=== PATIENT | male | born 1995 | race Two or more races ===

== ENCOUNTER 2016-11-05 05:17 | Emergency (ER) | payer OTHER, MEDICAID ==
[2016-11-05] MEDS ORDERED: NS 1,000 ML IV ONE (05:25)
[2016-11-05 05:29] VITALS: RESP 16
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
[2016-11-05] MEDS ORDERED: IOPAMIDOL (ISOVUE-300) 100 ML BTL IV ONE (05:39)
[2016-11-05 05:46] LABS: % IMMATURE GRANULYOCYTES 0.4 % (0.0-1.1); ABSOLUTE IMMATURE GRANULOCYTES 0.03 10^3/uL (0.00-0.10); ADD DIFF? NO; ADD MORPH? NO; ADD SCAN? NO; ATYPICAL LYMPHOCYTE FLAG 90 (0-99); FRAGMENT RBC FLAG 0 (0-99); HEMATOCRIT 40.8 % (40.0-51.0); HEMOGLOBIN 14.5 g/dL (13.7-17.5); LEFT SHIFT FLG 0 (0-99); LIPEMIA HEMOLYSIS FLAG 90 (0-99); MEAN CELL HEMOGLOBIN 32.2 pg (27.9-34.1); MEAN CELL HEMOGLOBIN CONCENTR. 35.5 g/dL (32.4-36.7); MEAN CELL VOLUME 90.7 fL (81.5-99.8); MEAN PLATELET VOLUME 10.5 fL (8.7-11.7); PLATELET CLUMPS FLAG 0 (0-99); PLATELET COUNT 199 10^3/uL (150-400); RED CELL DISTRIBUTION WIDTH 11.7 % (11.5-15.2)
[2016-11-05 06:02] LABS: ANION GAP 12 mEq/L (8-16); CALCIUM 9.2 mg/dL (8.5-10.4); CARBON DIOXIDE 24 mEq/l (22-31); CHLORIDE 105 mEq/L (97-110); CREATININE 0.7 mg/dL (0.7-1.3); ETHANOL SERUM < 10 mg/dL (0-10); GLOMERULAR FILTRATION RATE > 60; GLUCOSE 103 mg/dL (70-100); POTASSIUM 4.3 mEq/L (3.5-5.2); SODIUM 141 mEq/L (134-144)
[2016-11-05] MEDS ORDERED: IBUPROFEN 600 MG TAB PO ONE ×2 (06:58→07:03)
[2016-11-05 07:03] VITALS: BP 140/81; PULSE 86; TEMP 97.5; O2SAT 98
[2016-11-05 07:14] LABS: COLOR PALE YELLOW; LEUKOCYTE ESTERASE,URINE NEGATIVE (NEGATIVE); NITRITE,URINE NEGATIVE (NEGATIVE)
== END 2016-11-05 07:04 | disposition home or self-care (01) ==
LOC: EDUNIT#
DX: T14.8 Other injury of unspecified body region (principal); F17.200 Nicotine dependence, unspecified, uncomplicated; V44.5XXA Car driver injured in collision with heavy transport vehicle or bus in traffic accident, initial encounter; Y92.410 Unspecified street and highway as the place of occurrence of the external cause; Y99.8 Other external cause status; Y93.89 Activity, other specified
CPT/HCPCS: 80305; 82947-QW; G0397; G0480; Q9967

== ENCOUNTER 2017-11-25 08:57 | Emergency (ER) | payer MEDICAID, OTHER ==
[2017-11-25 09:03] VITALS: TEMP 97.7
[2017-11-25] MEDS ORDERED: NS 1,000 ML IV ONE (09:08)
[2017-11-25] MEDS ORDERED: ONDANSETRON 4 MG/2 ML VIAL IVP ONE (09:08)
[2017-11-25] MEDS ORDERED: LORazepam 2 MG/ML INJ IVP ONE ×2 (09:13→09:51)
[2017-11-25] MEDS ORDERED: KETOROLAC 15 MG/1 ML SDV IVP ONE (09:13)
--- NOTE | 2017-11-25 09:17 | EDPHY ---
H & P Time Seen by Provider: 11/25/17 09:05 HPI/ROS: CHIEF COMPLAINT: Vomiting, abdominal pain HISTORY OF PRESENT ILLNESS: 22-year-old male presents with vomiting and abdominal pain. Onset of generalized abdominal pain this morning, associated with multiple episodes of vomiting and diarrhea. The abdominal pain waxes and wanes and is moderate. He also has tingling in all of his extremities and feels quite anxious. History of daily marijuana use. No prior similar symptoms. No known bad food ingestion or ill contacts. REVIEW OF SYSTEMS: Constitutional: No fever, no chills Eyes: No visual changes ENT: No sore throat Respiratory: No cough, no shortness of breath Cardiac: No chest pain Genitourinary: no dysuria Musculoskeletal: No myalgias Skin: No rash Neurological: No headache, no weakness Psychiatric: Feels anxious Past Medical/Surgical History: Denies Social History: No alcohol Daily marijuana use Smoking Status: Current every day smoker Physical Exam: General Appearance: Alert, pleasant, appears uncomfortable Eyes: Pupils equal and round, no conjunctival pallor or injection ENT, Mouth: Mucous membranes moist Neck: Normal inspection Respiratory: Lungs are clear to auscultation Cardiovascular: Regular rate and rhythm Gastrointestinal: Abdomen is soft, diffuse mild tenderness, no peritoneal signs Neurological: A&O, nonfocal, normal gait Skin: Warm and dry Extremities: Normal inspection Psychiatric: Anxious Constitutional: Initial Vital Signs Temperature (C) 36.5 C 11/25/17 08:58 Heart Rate 103 H 11/25/17 08:58 Respiratory Rate 20 11/25/17 08:58 Blood Pressure 139/76 H 11/25/17 08:58 O2 Sat (%) 97 11/25/17 08:58 O2 Delivery Mode Room Air Allergies/Adverse Reactions: No Known Allergies Allergy (Verified 11/25/17 08:58) Home Medications: Medication Instructions Recorded Ondansetron Odt [Zofran Odt 4 mg 4 mg PO Q4 PRN #6 tab 11/25/17 (*)] Medical Decision Making ED Course/Re-evaluation: This patient presents with vomiting and diarrhea, most likely secondary to gastroenteritis, query cyclic vomiting syndrome. Abdominal exam is benign and I do not suspect appendicitis or other surgical problem. IV normal saline 1 L, Zofran 4 mg IV, Toradol 15 mg IV and Ativan 0.5 mg IV given. Will reassess after medications. 9:45 a.m.-feels better overall, nausea and pain have resolved. Abdomen is soft and nontender. Continues to feel anxious. Ativan 0.5 mg IV given. 11 30 a.m.-recurrent nausea. Reglan 10 mg IV and Benadryl 25 mg IV given. Feels better after these medications. The patient left the emergency department without letting the ED staff know prior to final re-evaluation. Differential Diagnosis: Differential diagnosis includes though it is not limited to appendicitis, cholecystitis, diverticulitis, pyelonephritis, bowel perforation, small bowel obstruction. - Data Points Laboratory Results: Laboratory Results 11/25/17 09:12 11/25/17 09:12 Medications Given: Discontinued Medications Diphenhydramine HCl (Benadryl Injection) 25 mg IVP EDNOW ONE Stop: 11/25/17 11:44 Last Admin: 11/25/17 12:03 Dose: 25 mg Sodium Chloride (Ns) 1,000 mls @ 0 mls/hr IV EDNOW ONE; Wide Open PRN Reason: Protocol Stop: 11/25/17 09:09 Last Admin: 11/25/17 09:19 Dose: 1,000 mls Ketorolac Tromethamine (Toradol) 15 mg IVP EDNOW ONE Stop: 11/25/17 09:14 Last Admin: 11/25/17 09:18 Dose: 15 mg Lorazepam (Ativan Injection) 0.5 mg IVP EDNOW ONE Stop: 11/25/17 09:14 Last Admin: 11/25/17 09:18 Dose: 0.5 mg Lorazepam (Ativan Injection) 0.5 mg IVP EDNOW ONE Stop: 11/25/17 09:52 Last Admin: 11/25/17 10:26 Dose: 0.5 mg Metoclopramide HCl (Reglan Injection) 10 mg IVP EDNOW ONE Stop: 11/25/17 11:44 Last Admin: 11/25/17 12:03 Dose: 10 mg Ondansetron HCl (Zofran) 4 mg IVP EDNOW ONE Stop: 11/25/17 09:09 Last Admin: 11/25/17 09:18 Dose: 4 mg Departure - Departure Disposition: Home, Routine, Self-Care Clinical Impression: Vomiting and diarrhea Abdominal pain Qualifiers: Abdominal location: generalized Qualified Code(s): R10.84 - Generalized abdominal pain Condition: Good Instructions: Acute Nausea and Vomiting (ED), Acute Abdominal Pain (ED) Additional Instructions: 1. Clear liquids for 24 hours. 2. Advance diet as tolerated. I suggest the BRAT diet to start: bananas, rice, applesauce and toast. 3. Return for worsening symptoms, persistent vomiting, increasing abdominal pain , any concerns. 4. Follow up with your primary care physician in 1-2 days if you continue to have vomiting or abdominal pain. Referrals: [facility],. [Clinic] - 1 day, if not improved Prescriptions: Ondansetron Odt [Zofran Odt 4 mg (*)] 4 mg PO Q4 PRN #6 tab PRN Reason: Nausea
[2017-11-25 09:19] LABS: PLATELET COUNT 287 10^3/uL (150-400)
[2017-11-25] MEDS ORDERED: METOCLOPRAMIDE 10 MG/2 ML VIAL IVP ONE (11:43)
[2017-11-25 12:06] VITALS: BP 158/88; PULSE 86; RESP 16; O2SAT 100
== END 2017-11-25 12:30 | disposition home or self-care (01) ==
DX: R10.84 Generalized abdominal pain (principal); R11.10 Vomiting, unspecified; R19.7 Diarrhea, unspecified; E86.9 Volume depletion, unspecified; F17.200 Nicotine dependence, unspecified, uncomplicated
CPT/HCPCS: 96374; J1200; J1885; J2060; J2405; J2765

== ENCOUNTER 2018-03-05 12:05 | Emergency (ER) | payer MEDICAID, OTHER ==
[2018-03-05] MEDS ORDERED: NS 1,000 ML IV ONE (12:23)
[2018-03-05] MEDS ORDERED: ONDANSETRON 4 MG/2 ML VIAL IVP ONE (12:27)
[2018-03-05 12:58] LABS: PLATELET COUNT 329 10^3/uL (150-400)
[2018-03-05] MEDS ORDERED: PANTOPRAZOLE SODIUM 40 MG VIAL IVP ONE (13:01)
[2018-03-05] MEDS ORDERED: LORazepam 2 MG/ML INJ IVP ONE (13:01)
--- NOTE | 2018-03-05 13:05 | EDPHY ---
H & P Smoking Status: Current every day smoker Time Seen by Provider: 03/05/18 12:18 HPI/ROS: CHIEF COMPLAINT: Nausea, vomiting HISTORY OF PRESENT ILLNESS: 22-year-old male presents to the emergency department with multiple episodes of nausea vomiting since this morning. The patient has had similar episodes in the past. He says that he feels very weak. He typically smokes marijuana daily. He describes some mild diffuse abdominal pain. He feels nauseous and has vomited multiple times. No diarrhea. No fevers or chills. No chest pain or difficulty breathing. No neck or back pain. No reported trauma. He does not drink alcohol. REVIEW OF SYSTEMS: Constitutional: No fever, no chills. Eyes: No double or blurry vision. ENT: No sore throat. Respiratory: No cough, no shortness of breath. Cardiac: No chest pain. Gastrointestinal: Vomiting as above. Abdominal pain. No diarrhea. Genitourinary: No dysuria. Musculoskeletal: No neck or back pain. Skin: No rashes. Neurological: No headache. (Ara Finnegan) Past Medical/Surgical History: Daily marijuana use (Ara Finnegan) Social History: Single (Ara Finnegan) Physical Exam: General Appearance: Alert, mild to moderate distress. Anxious Eyes: Pupils equal and round. Extraocular motions are all intact. ENT: Mouth: Mucous membranes moist. Respiratory: No wheezing, rhonchi, or rales, lungs are clear to auscultation. Cardiovascular: Regular rate and rhythm. Gastrointestinal: Abdomen is soft he has mild diffuse tenderness with palpation. There is no masses, rebound or guarding noted. No CVA tenderness bilaterally. Neurological: Alert and oriented x 3, cranial nerves II through XII grossly intact Skin: Warm and dry, no rashes. Musculoskeletal: Nontender to palpate along the cervical, thoracic or lumbar spine. Neck is supple. Extremities: Full range of motion and no peripheral edema. Psychiatric: Patient is oriented X 3, there is no agitation. (Ara Finnegan) Constitutional: Initial Vital Signs Temperature (C) 36.4 C 03/05/18 12:06 Heart Rate 78 03/05/18 12:06 Blood Pressure 151/88 H 03/05/18 12:06 O2 Sat (%) 100 03/05/18 12:06 O2 Delivery Mode Room Air Allergies/Adverse Reactions: No Known Allergies Allergy (Verified 03/05/18 12:09) Home Medications: Medication Instructions Recorded NK [No Known Home Meds] 03/05/18 Medical Decision Making ED Course/Re-evaluation: The patient was evaluated and managed by the physician's home health assistant. My cosignature indicates that I reviewed the chart and I agree with the findings and plan of care as documented. I am the secondary supervising physician. ( Lena Lopez) 22-year-old male presents to the emergency department with nausea, vomiting and feeling weak. Laboratory studies were within normal limits. His CO2 was low at 17. He received IV normal saline, IV Ativan, IV Zofran, he is feeling much better. He is tolerating p.o. Fluids and is comfortable being discharged home. Patient's abdominal exam is benign. I do not think imaging studies are indicated. He was given gastroenterology referral. (Ara Finnegan) Differential Diagnosis: Including but not limited to dehydration, bowel obstruction, cyclical vomiting syndrome, GERD, peptic ulcer disease, acute appendicitis (Ara Finnegan) - Data Points Laboratory Results: Laboratory Results 03/05/18 12:41 03/05/18 12:41 03/05/18 03/05/18 12:41 12:41 WBC 13.75 10^3/uL H 10^3/uL (3.80-9.50) RBC 4.61 10^6/uL 10^6/uL (4.40-6.38) Hgb 14.8 g/dL g/dL (13.7-17.5) Hct 41.8 % % (40.0-51.0) MCV 90.7 fL fL (81.5-99.8) MCH 32.1 pg pg (27.9-34.1) MCHC 35.4 g/dL g/dL (32.4-36.7) RDW 12.3 % % (11.5-15.2) Plt Count 329 10^3/uL 10^3/uL (150-400) MPV 10.4 fL fL (8.7-11.7) Neut % (Auto) 82.5 % H % (39.3-74.2) Lymph % (Auto) 9.5 % L % (15.0-45.0) [place] % (Auto) 6.9 % % (4.5-13.0) Eos % (Auto) 0.1 % L % (0.6-7.6) Baso % (Auto) 0.4 % % (0.3-1.7) Nucleat RBC Rel Count 0.0 % % (0.0-0.2) Absolute Neuts (auto) 11.35 10^3/uL H 10^3/uL (1.70-6.50) Absolute Lymphs (auto) 1.30 10^3/uL 10^3/uL (1.00-3.00) Absolute Monos (auto) 0.95 10^3/uL H 10^3/uL (0.30-0.80) Absolute Eos (auto) 0.02 10^3/uL L 10^3/uL (0.03-0.40) Absolute Basos (auto) 0.05 10^3/uL 10^3/uL (0.02-0.10) Absolute Nucleated RBC 0.00 10^3/uL 10^3/uL (0-0.01) Immature Gran % 0.6 % % (0.0-1.1) Immature Gran # 0.08 10^3/uL 10^3/uL (0.00-0.10) Sodium 140 mEq/L mEq/L (135-145) Potassium 3.8 mEq/L mEq/L (3.3-5.0) Chloride 104 mEq/L mEq/L (97-110) Carbon Dioxide 19 mEq/l L mEq/l (22-31) Anion Gap 17 mEq/L H mEq/L (8-16) BUN 15 mg/dL mg/dL (7-23) Creatinine 0.6 mg/dL L mg/dL (0.7-1.3) Estimated GFR > 60 Glucose 145 mg/dL H mg/dL (70-100) Calcium 10.0 mg/dL mg/dL (8.5-10.4) Medications Given: Discontinued Medications Sodium Chloride (Ns) 1,000 mls @ 0 mls/hr IV ONCE ONE PRN Reason: Wide Open Stop: 03/05/18 12:24 Last Admin: 03/05/18 12:40 Dose: 1,000 mls Lorazepam (Ativan Injection) 1 mg IVP EDNOW ONE Stop: 03/05/18 13:02 Last Admin: 03/05/18 13:14 Dose: 1 mg Ondansetron HCl (Zofran) 4 mg IVP EDNOW ONE Stop: 03/05/18 12:28 Last Admin: 03/05/18 12:40 Dose: 4 mg Pantoprazole Sodium (Protonix) 40 mg IVP EDNOW ONE Stop: 03/05/18 13:02 Last Admin: 03/05/18 13:19 Dose: 40 mg Departure - Departure Disposition: Home, Routine, Self-Care Clinical Impression: Vomiting Qualifiers: Vomiting type: cyclical vomiting Vomiting Intractability: non-intractable Nausea presence: with nausea Qualified Code(s): G43.A0 - Cyclical vomiting, not intractable Condition: Good Instructions: Acute Nausea and Vomiting (ED) Additional Instructions: You should have close follow-up with golf cart maker as discussed. Return to the emergency department if you have recurring episodes of vomiting or if you have any other concerns. Referrals: Jay Jay Bojorquez MD [Medical Doctor] - 5-7 days, call for appt. (Maintenance Construction Helper on-call)
[2018-03-05 15:21] VITALS: BP 152/59
== END 2018-03-05 15:31 | disposition home or self-care (01) ==
DX: G43.A0 Cyclical vomiting, in migraine, not intractable (principal); F17.200 Nicotine dependence, unspecified, uncomplicated
CPT/HCPCS: 96374; J2060; J2405

== ENCOUNTER 2019-01-10 21:00 | Emergency (ER) | payer MEDICAID, OTHER ==
--- NOTE | 2019-01-10 21:02 | EDPHY ---
H & P Time Seen by Provider: 01/10/19 21:02 HPI/ROS: HPI: This is a 23-year-old male who presents with Chief Complaint: Right lower quadrant abdominal pain, nausea, vomiting Location: Right lower quadrant Quality: Sharp pain Duration: Since this morning Signs and Symptoms: no fever, + nausea, + vomiting, no hematemesis, no blood in stool, no abdominal bloating, no diarrhea, no back pain, no urinary symptoms, no testicular/groin pain, no indigestion, no chest pain, no shortness of breath Timing: Acute, constant, intermittent episodes Severity: Moderate Context: Patient presents with sudden onset this morning of nausea and greater than 10 episodes of vomiting accompanied by epigastric and right lower quadrant pain. Patient admits to alcohol and marijuana use. He reports he only drank a beer yesterday. Denies any fever, diarrhea, recent antibiotic use, back pain, urinary symptoms. Modifying Factors: None Comment: ROS: A comprehensive 10 system review of systems is otherwise negative aside from elements mentioned in the history of present illness. MEDICAL/SURGICAL/SOCIAL HISTORY: Medical history: Generally healthy. Does not take any regular medications. Surgical history: Denies Social history: Employed. Alcohol and marijuana use. Denies tobacco use. Family history noncontributory. CONSTITUTIONAL: Extremely well-appearing adult male, awake and alert, no obvious distress HEENT: Atraumatic and normocephalic, PERRL, EOMI. Nares patent; no rhinorrhea; no nasal mucosal edema. Tympanic membranes clear. Oropharynx clear, no exudate and moist pink mucosa. Airway patent. No lymphadenopathy. No meningismus. Cardiovascular: Normal S1/S2, tachycardia, regular rhythm, without murmur rub or gallop. PULMONARY/CHEST: Symmetrical and nontender. Clear to auscultation bilaterally. Good air movement. No accessory muscle usage. ABDOMEN: Soft, nondistended, moderate right lower quadrant tenderness, mild epigastric tenderness, no rebound, no guarding, no peritoneal signs, no masses or organomegaly. No CVAT. EXTREMITIES: 2/2 pulses, strength 5/5, no deformities, no clubbing, no cyanosis or edema. NEUROLOGICAL: no focal neuro deficits. GCS 15. SKIN: Warm and dry, no erythema. no rash. Good capillary refill. Source: Patient Exam Limitations: No limitations - Personal History Tetanus Vaccine Date: < 10 YEARS - Medical/Surgical History Hx Asthma: No Hx Chronic Respiratory Disease: No Hx Diabetes: No Hx Cardiac Disease: No Hx Renal Disease: No Hx Cirrhosis: No Hx Alcoholism: No Hx HIV/AIDS: No Hx Splenectomy or Spleen Trauma: No Other PMH: none - Social History Smoking Status: Never smoked Constitutional: Initial Vital Signs Temperature (C) 37.1 C 01/10/19 21:00 Heart Rate 107 H 01/10/19 21:00 Respiratory Rate 16 01/10/19 21:00 Blood Pressure 150/98 H 01/10/19 21:00 O2 Sat (%) 99 01/10/19 21:00 O2 Delivery Mode Room Air Allergies/Adverse Reactions: No Known Allergies Allergy (Verified 01/10/19 21:03) Home Medications: Medication Instructions Recorded Ondansetron Odt [Zofran Odt 4 mg 4 mg PO Q4 PRN #12 tab 01/10/19 (*)] Medical Decision Making - Diagnostics Imaging Results: Imaging Impressions Abdomen CT 01/10/19 21:27 Impression: Findings are within normal limits. There is no evidence of appendicitis. Findings were discussed with Guera Riddle PA-C at 11:09 PM, on 01/10/2019, who indicated that at the time of her exam the patient's pain was more epigastric in location. ED Course/Re-evaluation: Vital signs reviewed and show mild tachycardia and elevated blood pressure. Afebrile. IV access, laboratory studies, urinalysis and CT abdomen and pelvis scan with contrast ordered to evaluate for appendicitis Given 2 L normal saline, IV promethazine 12.5 mg, IV Zofran 4 mg 2238: Laboratory studies reviewed. WBC 14 K with left shift, sodium 137, potassium 3.6, creatinine 0.8. no signs of elevated LFTs, pancreatitis. Calcium 11.1, asymptomatic, suspect due to volume depletion 2308: Urinalysis shows trace ketones and increased specific gravity 2310: Repeat vital signs shows resolution of tachycardia with IV fluid hydration 2315: Called by radiologist, Dr. Alves, who reports that CT abdomen and pelvis scan shows no signs of appendicitis, no gallbladder disease, no pancreatitis, no gastroenteritis, no obstruction. It appears that patient has a gastritis versus gastroenteritis picture. Passed p.o. Trial without difficulty. Advised supportive care and prescription for Zofran given 2334: Notified by tech that patient now complaining of epigastric pain. IV Haldol 2.5 mg and IV Benadryl 25 mg given 0: Notified by RN that patient now feels better and asking to be discharged home. Tolerated p.o. Trial without any difficulty. Discharge with Phenergan prepack and prescription for Zofran. This patient was seen under the supervision of my secondary supervising physician. I evaluated and cared for this patient with attending. Differential Diagnosis: Abdominal pain including but not limited to appendicitis, cholecystitis, gastritis and urinary tract infection. - Data Points Laboratory Results: Laboratory Results 01/10/19 22:25 01/10/19 22:00 01/10/19 01/10/19 01/10/19 22:50 22:25 22:00 WBC 14.44 10^3/uL H 10^3/uL (3.80-9.50) RBC 4.88 10^6/uL 10^6/uL (4.40-6.38) Hgb 15.6 g/dL g/dL (13.7-17.5) Hct 43.3 % % (40.0-51.0) MCV 88.7 fL fL (81.5-99.8) MCH 32.0 pg pg (27.9-34.1) MCHC 36.0 g/dL g/dL (32.4-36.7) RDW 12.1 % % (11.5-15.2) Plt Count 269 10^3/uL 10^3/uL (150-400) MPV 10.5 fL fL (8.7-11.7) Neut % (Auto) 87.9 % H % (39.3-74.2) Lymph % (Auto) 6.4 % L % (15.0-45.0) [place] % (Auto) 5.2 % % (4.5-13.0) Eos % (Auto) 0.0 % L % (0.6-7.6) Baso % (Auto) 0.2 % L % (0.3-1.7) Nucleat RBC Rel Count 0.0 % % (0.0-0.2) Absolute Neuts (auto) 12.69 10^3/uL H 10^3/uL (1.70-6.50) Absolute Lymphs (auto) 0.92 10^3/uL L 10^3/uL (1.00-3.00) Absolute Monos (auto) 0.75 10^3/uL 10^3/uL (0.30-0.80) Absolute Eos (auto) 0.00 10^3/uL L 10^3/uL (0.03-0.40) Absolute Basos (auto) 0.03 10^3/uL 10^3/uL (0.02-0.10) Absolute Nucleated RBC 0.00 10^3/uL 10^3/uL (0-0.01) Immature Gran % 0.3 % % (0.0-1.1) Immature Gran # 0.05 10^3/uL 10^3/uL (0.00-0.10) Sodium 137 mEq/L mEq/L (135-145) Potassium 3.6 mEq/L mEq/L (3.5-5.2) Chloride 100 mEq/L mEq/L (97-110) Carbon Dioxide 22 mEq/l mEq/l (22-31) Anion Gap 15 mEq/L H mEq/L (6-14) BUN 18 mg/dL mg/dL (7-23) Creatinine 0.8 mg/dL mg/dL (0.7-1.3) Estimated GFR > 60 Glucose 142 mg/dL H mg/dL (70-100) Calcium 11.1 mg/dL H mg/dL (8.5-10.4) Phosphorus 1.9 mg/dL L mg/dL (2.5-4.5) Total Bilirubin 0.8 mg/dL mg/dL (0.1-1.4) Conjugated Bilirubin 0.2 mg/dL mg/dL (0.0-0.5) Unconjugated Bilirubin 0.6 mg/dL mg/dL (0.0-1.1) AST 25 IU/L IU/L (17-59) ALT 19 IU/L L IU/L (21-72) Alkaline Phosphatase 118 IU/L IU/L (38-126) Total Protein 8.8 g/dL H g/dL (6.3-8.2) Albumin 5.4 g/dL H g/dL (3.5-5.0) Lipase 30 IU/L IU/L (23-300) Urine Color YELLOW Urine Appearance CLEAR Urine pH 8.0 H (5.0-7.5) Ur Specific [place] > 1.035 H (1.002-1.030) Urine Protein NEGATIVE (NEGATIVE) Urine Ketones TRACE H (NEGATIVE) Urine Blood NEGATIVE (NEGATIVE) Urine Nitrate NEGATIVE (NEGATIVE) Urine Bilirubin NEGATIVE (NEGATIVE) Urine Urobilinogen NEGATIVE EU EU (0.2-1.0) Ur Leukocyte Esterase NEGATIVE (NEGATIVE) Urine Glucose NEGATIVE (NEGATIVE) 01/10/19 22:00 WBC REJ RBC REJ Hgb REJ Hct REJ MCV REJ MCH REJ MCHC REJ RDW REJ Plt Count REJ MPV REJ Neut % (Auto) REJ Lymph % (Auto) REJ [place] % (Auto) REJ Eos % (Auto) REJ Baso % (Auto) REJ Nucleat RBC Rel Count REJ Absolute Neuts (auto) REJ Absolute Lymphs (auto) REJ Absolute Monos (auto) REJ Absolute Eos (auto) REJ Absolute Basos (auto) REJ Absolute Nucleated RBC REJ Immature Gran % REJ Immature Gran # REJ Sodium Potassium Chloride Carbon Dioxide Anion Gap BUN Creatinine Estimated GFR Glucose Calcium Phosphorus Total Bilirubin Conjugated Bilirubin Unconjugated Bilirubin AST ALT Alkaline Phosphatase Total Protein Albumin Lipase Urine Color Urine Appearance Urine pH Ur Specific [place] Urine Protein Urine Ketones Urine Blood Urine Nitrate Urine Bilirubin Urine Urobilinogen Ur Leukocyte Esterase Urine Glucose Medications Given: Discontinued Medications Diphenhydramine HCl (Benadryl Injection) 25 mg IVP EDNOW ONE Stop: 01/10/19 23:34 Last Admin: 01/10/19 23:35 Dose: 25 mg Haloperidol Lactate (Haldol Injection) 2.5 mg IVP EDNOW ONE Stop: 01/10/19 23:32 Last Admin: 01/10/19 23:35 Dose: 2.5 mg Sodium Chloride (Ns) 1,000 mls @ 0 mls/hr IV EDNOW ONE; Wide Open PRN Reason: Protocol Stop: 01/10/19 21:27 Last Admin: 01/10/19 21:55 Dose: 1,000 mls Ondansetron HCl (Zofran) 4 mg IVP EDNOW ONE Stop: 01/10/19 21:27 Last Admin: 01/10/19 21:59 Dose: 4 mg Promethazine HCl (Phenergan) 12.5 mg IVP EDNOW ONE Stop: 01/10/19 21:27 Last Admin: 01/10/19 21:59 Dose: 12.5 mg Departure - Departure Disposition: Home, Routine, Self-Care Clinical Impression: Nausea and vomiting in adult Condition: Good Instructions: Acute Nausea and Vomiting (ED) Additional Instructions: Consume a minimum of 8-10 glasses of water or electrolyte fluid replacement drinks that include Gatorade, Powerade, Pedialyte. Eat a bland diet for the next 48 hours and then slowly advance as tolerated. Take Zofran 1 tab every 4 hours as needed for nausea, vomiting. Establish care at the [facility]. Referrals: [facility],. [Clinic] - As per Instructions Prescriptions: Ondansetron Odt [Zofran Odt 4 mg (*)] 4 mg PO Q4 PRN #12 tab PRN Reason: Nausea/Vomiting, Use 1st
[2019-01-10] MEDS ORDERED: PROMETHAZINE HCL 25 MG/ML INJ IVP ONE (21:26)
[2019-01-10] MEDS ORDERED: ONDANSETRON 4 MG/2 ML VIAL IVP ONE (21:26)
[2019-01-10] MEDS ORDERED: NS 1,000 ML IV ONE (21:26)
[2019-01-10] MEDS ORDERED: IOPAMIDOL (ISOVUE-300) 100 ML BTL ONE (21:29)
[2019-01-10 22:32] LABS: PLATELET COUNT 269 10^3/uL (150-400)
[2019-01-10] MEDS ORDERED: PROMETHAZINE 25 MG PREPACK #4 BTL TAKEHOME ONE (23:19)
[2019-01-10] MEDS ORDERED: HALOPERIDOL LACT 5 MG/ML INJ IVP ONE (23:31)
[2019-01-10] MEDS ORDERED: HALOPERIDOL LACT 5 MG/ML INJ ONE (23:32)
[2019-01-11 00:07] VITALS: BP 125/79
== END 2019-01-11 00:07 | disposition home or self-care (01) ==
DX: R11.2 Nausea with vomiting, unspecified (principal); R10.31 Right lower quadrant pain; R10.13 Epigastric pain; E86.9 Volume depletion, unspecified
CPT/HCPCS: 96374; J1200; J1630; J2405; J2550; Q9967

== ENCOUNTER 2019-01-12 12:18 | Emergency (ER) | payer MEDICAID ==
[2019-01-12] MEDS ORDERED: NS 1,000 ML IV ONE (13:20)
[2019-01-12] MEDS ORDERED: METOCLOPRAMIDE 10 MG/2 ML VIAL IVP ONE (13:20)
--- NOTE | 2019-01-12 13:22 | EDPHY ---
H & P Stated Complaint: anxiety and abdominal pain Time Seen by Provider: 01/12/19 13:12 HPI/ROS: CHIEF COMPLAINT: Vomiting HISTORY OF PRESENT ILLNESS: The patient is a 23-year-old man who comes to the emergency department complaining of nausea vomiting since 9:00 a.m. this morning. He was seen here 2 days ago with nausea and abdominal pain. He had lab work done and a CT scan that was negative. He was discharged with a prescription for Zofran. He did not fill that prescription until today. He was feeling well yesterday and states that he worked a 12 hr day. This morning when he woke up he felt slightly nauseous again. He went to the pharmacist and got his prescription filled but when he took it he threw it back up. He states that he has thrown up 9 times since then with occasional streaks of blood. He denies abdominal pain today. No diarrhea. No chest pain or shortness of breath. No fever. He does smoke marijuana daily and tells me that he has been told to stop. Severity: Moderate Modifying factors: None REVIEW OF SYSTEMS: Constitutional: denies: chills, fever, recent illness, recent injury EENTM: denies: blurred vision, double vision, nose congestion Respiratory: denies: cough, shortness of breath Cardiac: denies: chest pain, irregular heart rate, lightheadedness, palpitations Gastrointestinal/Abdominal: See HPI Genitourinary: denies: dysuria, frequency, hematuria, pain Musculoskeletal: denies: joint pain, muscle pain Skin: denies: lesions, rash, jaundice, bruising Neurological: denies: headache, numbness, paresthesia, tingling, dizziness, weakness Hematologic/Lymphatic: denies: blood clots, easy bleeding, easy bruising Immunologic/allergic: denies: HIV/AIDS, transplant 10 systems reviewed and negative except as noted EXAM: GENERAL: Well-appearing, well-nourished and in no acute distress. HEAD: Atraumatic, normocephalic. EYES: Pupils equal round and reactive to light, extraocular movements intact, sclera anicteric, conjunctiva are normal. ENT: TMs normal, nares patent, oropharynx clear without exudates. Moist mucous membranes. NECK: Normal range of motion, supple without lymphadenopathy or JVD. LUNGS: Breath sounds clear to auscultation bilaterally and equal. No wheezes rales or rhonchi. HEART: Regular rate and rhythm without murmurs, rubs or gallops. ABDOMEN: Soft, nontender, normoactive bowel sounds. No guarding, no rebound. No masses appreciated. BACK: No CVA tenderness, no spinal tenderness, step-offs or deformities EXTREMITIES: Normal range of motion, no pitting or edema. No clubbing or cyanosis. NEUROLOGICAL: Cranial nerves II through XII grossly intact. Normal speech, normal gait. 5/5 strength, normal movement in all extremities, normal sensation , normal reflexes PSYCH: Normal mood, normal affect. SKIN: Warm, dry, normal turgor, no visible rashes or lesions. Source: Patient Exam Limitations: No limitations - Personal History Current Tetanus/Diphtheria Vaccine: Yes Current Tetanus Diphtheria and Acellular Pertussis (TDAP): Yes Tetanus Vaccine Date: < 10 YEARS - Medical/Surgical History Hx Asthma: No Hx Chronic Respiratory Disease: No Hx Diabetes: No Hx Cardiac Disease: No Hx Renal Disease: No Hx Cirrhosis: No Hx Alcoholism: No Hx HIV/AIDS: No Hx Splenectomy or Spleen Trauma: No Other PMH: none - Family History Significant Family History: No pertinent family hx - Social History Smoking Status: Never smoked Alcohol Use: None Constitutional: Initial Vital Signs Temperature (C) 36.6 C 01/12/19 12:31 Heart Rate 76 01/12/19 12:31 Respiratory Rate 18 01/12/19 12:31 Blood Pressure 135/71 H 01/12/19 12:31 O2 Sat (%) 100 01/12/19 12:31 O2 Delivery Mode Room Air Allergies/Adverse Reactions: No Known Allergies Allergy (Verified 01/10/19 21:03) Home Medications: Medication Instructions Recorded Ondansetron Odt [Zofran Odt 4 mg 4 mg PO Q4 PRN #12 tab 01/10/19 (*)] Medical Decision Making ED Course/Re-evaluation: Patient is well appearing. He denies abdominal pain and has a nontender exam. Will treat with antiemetics and hydration and recheck his lab work. On his previous visit he did not have complete resolution was Zofran and was eventually treated with Haldol and Benadryl which he states seemed to work better. Is also asking for anxiety medicine. 2:30 p.m. Patient is doing well. Nausea is resolved. Abdominal exam remains benign. Lab work is improved compared to 2 days ago. Will p.o. Challenge. He has already filled his Zofran prescription. 3:00 p.m. patient is doing well. She is tolerating p. O.. He is eager to go home. Differential Diagnosis: Partial list of the Differential diagnosis considered include but were not limited to; gastroenteritis, food poisoning, anxiety, cannabis hyperemesis and although unlikely based on the history and physical exam, I also considered biliary disease, pancreatic disease, appendicitis, volvulus, ischemia, kidney stone. I discussed these differential diagnoses and the plan with the patient as well as the usual and expected course. The patient understands that the diagnosis is provisional and that in medicine we are not always correct and that further workup is often warranted. Usual and customary warnings were given. All of the patient's questions were answered. The patient was instructed to return to the emergency department should the symptoms at all worsen or return, otherwise to followup with the physician as we discussed. - Data Points Laboratory Results: Laboratory Results 01/12/19 13:30 01/12/19 13:30 01/12/19 01/12/19 13:30 13:30 WBC 11.91 10^3/uL H 10^3/uL (3.80-9.50) RBC 4.77 10^6/uL 10^6/uL (4.40-6.38) Hgb 15.4 g/dL g/dL (13.7-17.5) Hct 44.3 % % (40.0-51.0) MCV 92.9 fL fL (81.5-99.8) MCH 32.3 pg pg (27.9-34.1) MCHC 34.8 g/dL g/dL (32.4-36.7) RDW 12.0 % % (11.5-15.2) Plt Count 270 10^3/uL 10^3/uL (150-400) MPV 10.3 fL fL (8.7-11.7) Neut % (Auto) 84.7 % H % (39.3-74.2) Lymph % (Auto) 8.5 % L % (15.0-45.0) [place] % (Auto) 5.5 % % (4.5-13.0) Eos % (Auto) 0.3 % L % (0.6-7.6) Baso % (Auto) 0.7 % % (0.3-1.7) Nucleat RBC Rel Count 0.0 % % (0.0-0.2) Absolute Neuts (auto) 10.09 10^3/uL H 10^3/uL (1.70-6.50) Absolute Lymphs (auto) 1.01 10^3/uL 10^3/uL (1.00-3.00) Absolute Monos (auto) 0.66 10^3/uL 10^3/uL (0.30-0.80) Absolute Eos (auto) 0.03 10^3/uL 10^3/uL (0.03-0.40) Absolute Basos (auto) 0.08 10^3/uL 10^3/uL (0.02-0.10) Absolute Nucleated RBC 0.00 10^3/uL 10^3/uL (0-0.01) Immature Gran % 0.3 % % (0.0-1.1) Immature Gran # 0.04 10^3/uL 10^3/uL (0.00-0.10) Sodium 140 mEq/L mEq/L (135-145) Potassium 4.0 mEq/L mEq/L (3.5-5.2) Chloride 104 mEq/L mEq/L (97-110) Carbon Dioxide 23 mEq/l mEq/l (22-31) Anion Gap 13 mEq/L mEq/L (6-14) BUN 19 mg/dL mg/dL (7-23) Creatinine 0.7 mg/dL mg/dL (0.7-1.3) Estimated GFR > 60 Glucose 105 mg/dL H mg/dL (70-100) Calcium 9.8 mg/dL mg/dL (8.5-10.4) Total Bilirubin 0.9 mg/dL mg/dL (0.1-1.4) Conjugated Bilirubin 0.2 mg/dL mg/dL (0.0-0.5) Unconjugated Bilirubin 0.7 mg/dL mg/dL (0.0-1.1) AST 50 IU/L IU/L (17-59) ALT 32 IU/L IU/L (21-72) Alkaline Phosphatase 104 IU/L IU/L (38-126) Total Protein 7.8 g/dL g/dL (6.3-8.2) Albumin 4.9 g/dL g/dL (3.5-5.0) Lipase 33 IU/L IU/L (23-300) Medications Given: Discontinued Medications Sodium Chloride (Ns) 1,000 mls @ 0 mls/hr IV EDNOW ONE; Wide Open PRN Reason: Protocol Stop: 01/12/19 13:21 Last Admin: 01/12/19 13:33 Dose: 1,000 mls Lorazepam (Ativan Injection) 1 mg IVP EDNOW ONE Stop: 01/12/19 13:24 Last Admin: 01/12/19 13:35 Dose: 1 mg Metoclopramide HCl (Reglan Injection) 10 mg IVP EDNOW ONE Stop: 01/12/19 13:21 Last Admin: 01/12/19 13:37 Dose: 10 mg Departure - Departure Disposition: Home, Routine, Self-Care Clinical Impression: Acute gastroenteritis Condition: Fair Instructions: Gastroenteritis (ED) Referrals: NONE *PRIMARY CARE P,. [Primary Care Provider] - As per Instructions [facility],. [Clinic] - As per Instructions
[2019-01-12] MEDS ORDERED: LORazepam 2 MG/ML INJ IVP ONE (13:23)
[2019-01-12 13:45] LABS: PLATELET COUNT 270 10^3/uL (150-400)
[2019-01-12 15:12] VITALS: BP 122/73
== END 2019-01-12 15:20 | disposition home or self-care (01) ==
DX: K52.9 Noninfective gastroenteritis and colitis, unspecified (principal); E86.9 Volume depletion, unspecified
CPT/HCPCS: 96374; J2060; J2765